=== PATIENT | male | born 1995 | race African-American/Black ===

== ENCOUNTER 2019-11-10 16:43 | Emergency (ER) | payer OTHER ==
[~2019-11-10] VITALS: Ht 170.2 cm; Wt 68.0 kg
[2019-11-10] MEDS ORDERED: KETOROLAC 30MG/ML VIAL IV STA (18:23)
[2019-11-10] MEDS ORDERED: SODIUM CHLORIDE 0.9% 1000ML BAG (SEPSIS BOLUS) IV ONE (18:30)
[2019-11-10] MEDS ORDERED: PIPERACILLIN/TAZ 3.375G PREMIX 50 ML IV ONE (18:30)
[2019-11-10 19:43] LABS: PROTHROMBIN TIME 11.2 sec (9.6-11.0)
[2019-11-10 19:45] LABS: CHLORIDE 104 mEq/L (98-107)
[2019-11-10 19:49] LABS: BASOPHILS % 0.3 % (0.0-2.0); EOSINOPHILS % 0.1 % (0.0-5.0); HEMOGLOBIN. 10.2 g/dL (14.0-18.0); LYMPHOCYTES % 13.8 % (20.0-50.0); MEAN CORPUSCULAR HEMOGLOBIN 23.3 pg (28.0-32.0); MEAN CORPUSCULAR VOLUME 75.7 fL (80.0-94.0); MONOCYTES % 7.1 % (2.0-8.0); NEUTROPHILS % 78.7 % (40.0-76.0); PLATELET 734 x1000/uL (130-400); RED BLOOD CELL COUNT 4.36 mill/uL (4.7-6.1); RED CELL DISTRIBUTION WIDTH 20.6 % (11.6-14.6)
[2019-11-10] MEDS ORDERED: IOHEXOL-300 100 ML BOTTLE ONE (20:53)
[2019-11-10] MEDS ORDERED: ONDANSETRON 4MG ODT PO ONE (21:30)
[2019-11-10] MEDS ORDERED: HYDROCODONE/ACETAMINOPHEN 5/325MG TABLET PO SCH (22:30)
[2019-11-10 22:36] LABS: CLARITY URINE CLOUDY (CLEAR); COLOR URINE YELLOW (YELLOW); KETONES URINE NEGATIVE (NEGATIVE); LEUKOCYTE ESTERASE URINE 2+ (NEGATIVE); NITRITE URINE POSITIVE (NEGATIVE); OCCULT BLOOD URINE NEGATIVE (NEGATIVE); PH URINE 8.5 (4.5-8.0); PROTEIN URINE 1+ (NEGATIVE); SPECIFIC GRAVITY URINE 1.031 (1.005-1.030)
[2019-11-11 14:00] VITALS: BP 121/63
== END 2019-11-11 14:28 | disposition left against medical advice (07) ==
LOC: ER 16:43 → CANBEDREQ 11-11 14:50
DX: A41.9 Sepsis, unspecified organism (principal); N39.0 Urinary tract infection, site not specified; L89.104 Pressure ulcer of unspecified part of back, stage 4; G82.20 Paraplegia, unspecified; Z03.818 Encounter for observation for suspected exposure to other biological agents ruled out; Z87.828 Personal history of other (healed) physical injury and trauma; Z88.3 Allergy status to other anti-infective agents; Z88.8 Allergy status to other drugs, medicaments and biological substances
CPT/HCPCS: 36415; 71045; 72193; 80053; 81003; 83605; 83690; 84145; 84484; 85025; 85610; 87040; 87086; 93005; 96365; 96366; 96375; 99291; J1885; J2543; J7030; Q0162; Q9967; U0003